=== PATIENT | female | born 1995 | race Caucasian/White ===

== ENCOUNTER → 2018-01-11 16:09 | Outpatient (CLI) | payer BC, SELFPAY ==
[2018-01-11 17:59] LABS: hCG Titer Quant., Serum < 1 mIU/mL (<9 non-preg)
[2018-01-11 18:04] LABS: Hemoglobin A1c 5.2 % (4.2-6.3)
[2018-01-11 18:16] LABS: Free T3 2.7 pg/mL (2.18-3.98); Luteinizing Hormone 17.5 mIU/mL; Prolactin 13.1 ng/mL; T4 Free Direct 0.74 ng/dL (0.76-1.46); Thyroid Stim Hormone (TSH) 5.37 uIU/mL (0.358-3.74)
[2018-01-14 14:18] LABS: HPV Reflexed? NOT INDICATED
== END ==
PROVIDERS: Visit Provider Obstetrics & Gynecology
DX: N92.6 Irregular menstruation, unspecified (principal); Z12.4 Encounter for screening for malignant neoplasm of cervix
CPT/HCPCS: 36415; 83001; 83002; 83036; 84146; 84439; 84443; 84481; 84702; 88175; G0145

== ENCOUNTER → 2018-04-06 15:50 | Outpatient (CLI) | payer BC, SELFPAY ==
[2018-04-06 19:30] LABS: Free T3 2.9 pg/mL (2.18-3.98); T4 Free Direct 1.03 ng/dL (0.76-1.46); Thyroid Stim Hormone (TSH) 2.16 uIU/mL (0.358-3.74)
== END ==
PROVIDERS: Visit Provider Obstetrics & Gynecology
DX: E03.8 Other specified hypothyroidism (principal); N92.6 Irregular menstruation, unspecified
CPT/HCPCS: 36415; 84439; 84443; 84481

== ENCOUNTER → 2019-02-01 15:43 | Outpatient (CLI) | payer BC, SELFPAY ==
[2019-02-01 17:47] LABS: Thyroid Stim Hormone (TSH) 1.77 uIU/mL (0.358-3.74)
[2019-02-08 17:40] LABS: HPV APTIMA, High Risk Positive (Negative); HPV Reflexed? YES, CHARGE PATIENT
== END ==
PROVIDERS: Visit Provider Obstetrics & Gynecology
DX: E03.9 Hypothyroidism, unspecified (principal); Z12.4 Encounter for screening for malignant neoplasm of cervix
CPT/HCPCS: 36415; 84443; 87624; 88175; G0145

== ENCOUNTER → 2019-03-15 16:40 | Outpatient (CLI) | payer BC, SELFPAY ==
--- NOTE | 2019-03-15 | CER_PTH ---
PATIENT: GEOFFREY LIANG LOC: [facility]#:[id number] AGE/SX: ROOM: RE03/15/[address]: Dr. Joel Michael MD : 1995 BED: DIS: SPEC #: [id number] RECD: 03/15/19 16:02 STATUS: MICHELLE AMELIA #: [id number] BEKA: 03/15/19 00:[address]: Joel Michael DEPT: SURGICAL PATHOLOGY RECD BY: Vik Mayorga Tissues: A - Uterine cervix, NOS B - Uterine cervix, NOS Procedures: Surgery Specimen Level IV HEADER OPERATION: Colposcopy PRE-OP DIAGNOSIS: ASCUS, positive HPV, R87.610, R87.810 TISSUE SUBMITTED: A - Cervical biopsy, B - ECC MICROSCOPIC DIAGNOSIS A. Cervix, biopsy: Focal HPV change suspected. See comment. B. Endocervix, curettings: Strips of benign superficial endocervix. Rare detached superficial squamous epithelial cells. No evidence of dysplasia. AM:rasheed 03/17/19 COMMENT A. Results from immunohistochemistry ([id number]) for surrogate HPV marker (p16) will be reported separately. MICROSCOPIC DESCRIPTION Slides are reviewed. GROSS DESCRIPTION A - Received in fixative is one container labeled with the patient's name and designated cervical biopsy. The specimen consists of one irregular fragment of light denney soft tissue that measures 0.4 x 0.3 x 0.1 cm. The specimen is totally submitted in one cassette. B - Received in fixative is one container labeled with the patient's name and designated ECC. The specimen consists of multiple fragments of hemorrhagic soft tissue that in aggregate measure 0.6 x 0.6 x 0.1 cm. The specimen is totally submitted in one cassette. / SJ:rasheed 03/16/19 TC:4 CPT: 41250 x2
--- NOTE | 2019-03-15 | IMM_PTH ---
PATIENT: GEOFFREY LIANG LOC: [facility]#:[id number] AGE/SX: 29/F ROOM: RE03/15/[address]: Dr. Joel Michael MD : 1995 BED: DIS: SPEC #: [id number] RECD: 03/17/19 12:12 STATUS: MICHELLE RENiels #: [id number] BEKA: 03/15/19 00:[address]: Joel Michael DEPT: IMMUNOHISTOCHEMISTRY RECD BY: Nivia Valdez Tissues: Uterine cervix, NOS Procedures: p16 (initial) KI-67 (add) PHYSICIAN & INSTITUTION [place] [id number] SPECIMEN INFORMATION: Tissue Source: A - Cervical biopsy Clinical Info: ASCUS, positive HPV Specimen Number: [id number] CPT code: 20385, 87966 METHODOLOGY: Deparaffinized sections of prefer/formalin-fixed tissue or PAP/DQ stained slides are incubated with monoclonal/polyclonal antibodies/oligonucleotide probes. Localization is made via biotin free immunoperoxidase method. Appropriate controls are performed and reacted as expected. Results on target cell population are indicated in the following table: RESULTS: ANTIBODY / CLONE RESULT Block A P16 (E6H4) negative Ki-67 (30-9) negative These tests were developed and their performance characteristics determined by [facility]. They may not have been cleared or approved by the [place] Food and Drug Administration. The FDA has determined that such clearance or approval is not necessary. The above immunohistochemical/dualISH markers are ordered and reviewed by the Pathologist. INTERPRETATION: A. Cervical biopsy: No evidence of dysplasia. AM:rasheed 03/20/19
== END ==
PROVIDERS: Referring Provider Obstetrics & Gynecology; Visit Provider Obstetrics & Gynecology
DX: R87.610 Atypical squamous cells of undetermined significance on cytologic smear of cervix (ASC-US) (principal); R87.810 Cervical high risk human papillomavirus (HPV) DNA test positive
CPT/HCPCS: 88305; 88341; 88342